=== PATIENT | female | born 1935 | race Caucasian/White ===

== ENCOUNTER → 2017-01-18 | Outpatient (CLI) | payer MEDICARE, OTHER ==
[2014-12-30 11:53] VITALS: BP 135/63
[~2017-01-18] MED LIST: ALBUTEROL0.09 MG/A4 IH; ASPIR LOW81 MG PO; BUFFERED ASPIR325 M1 PO; CEPHALEXIN500 M1 PO; COUMADIN 5MG5 MG/TAB PO; COUMADIN2.5 MG PO; COUMADIN7.5 MG PO; LEVAQUIN 250MG250 M1 PO; LOVENOX60 MG/0.6 SC; MECLIZINE25 MG PO; METOPROLOL SUCC50 M1 PO; MUCINEX 60600 MG/TA1 PO; NITROGLYCERIN0.4 MG SL; ONDANSETRON4 M1 PO; PROMETHAZINE HC25 M2 PO; SIMVASTATIN40 MG PO; TOPROL XL50 MG PO; VENTOLIN0.09 MG IH; VITAMIN D32000 IU PO; ZOCOR40 MG PO; [UNRECOGNIZED DRUG - OTHER] PO
== END ==
LOC: RAD 08:40 → LAB 10:22
DX: R10.30 Lower abdominal pain, unspecified (principal)
CPT/HCPCS: Q9967

== ENCOUNTER → 2017-01-19 | Outpatient (CLI) | payer MEDICARE, OTHER ==
[2014-12-30 11:53] VITALS: BP 135/63
== END ==
LOC: RAD 08:57
DX: R10.30 Lower abdominal pain, unspecified (principal); I77.4 Celiac artery compression syndrome; K57.30 Diverticulosis of large intestine without perforation or abscess without bleeding
CPT/HCPCS: Q9967

== ENCOUNTER → 2019-06-11 | Outpatient (CLI) | payer MEDICARE, OTHER ==
[2019-05-15 22:08] VITALS: BP 127/60
[~2019-06-11] MED LIST changes: +AMLODIPINE BES2.5 MG PO; +LEVOTHYROXINE0.05 MG PO; +METOPROLOL SUCC25 M1 PO; +SOTALOL HYDROCH80 MG PO; +XARELTO20 MG PO
== END ==
LOC: RAD 08:56
DX: K57.30 Diverticulosis of large intestine without perforation or abscess without bleeding (principal); M51.35 Other intervertebral disc degeneration, thoracolumbar region; K44.9 Diaphragmatic hernia without obstruction or gangrene; K76.89 Other specified diseases of liver
CPT/HCPCS: Q9967

== ENCOUNTER 2020-01-14 14:00 | Emergency (ER) | payer MEDICARE, OTHER ==
[~2020-01-14] VITALS: Ht 167.6 cm; Wt 72.7 kg
[2020-01-14 15:05] LABS: EOS # 0.2 (0.04-0.40); EOS % 2.2 % (1.0-5.0); HEMATOCRIT 45.7 % (37.0-47.0); HEMOGLOBIN 14.4 g/dL (12.5-16.0); LYMPH# 1.8 (1.50-4.00); MEAN CELL VOLUME 99 fl (78-100); MEAN CORPUSCULAR HEMOGLOBIN 31 pg (27-31); MEAN CORPUSCULAR HGB CONC 32 g/dL (33-37); MONO # 0.7 (0.20-0.80); NEU # 4.2 (1.40-6.50); PLATELET COUNT 153 K/mm3 (130-400); RED BLOOD COUNT 4.62 M/mm3 (4.10-5.30); RED CELL DISTRIBUTION WIDTH 14.3 % (11.5-14.5); WHITE BLOOD COUNT 6.9 K/mm3 (4.8-10.8)
[2020-01-14 15:34] LABS: ALBUMIN 3.8 g/dL (3.4-4.8); POTASSIUM 4.2 mmol/L (3.5-5.1); SODIUM 144 mmol/L (136-145)
[2020-01-14 15:35] LABS: CALCIUM 8.8 mg/dL (8.3-10.5)
[2020-01-14 15:37] LABS: GLUCOSE 86 mg/dL (65-105); TOTAL PROTEIN 6.5 g/dL (6.2-8.1)
[2020-01-14 15:38] LABS: CARBON DIOXIDE 22 mmol/L (23-31)
[2020-01-14 15:39] LABS: TOTAL BILIRUBIN 0.3 mg/dL (0.2-1.2)
[2020-01-14 15:42] LABS: AST-SGOT 20 U/L (5-34)
[2020-01-14 15:43] LABS: ALT/SGPT 21 U/L (0-55)
[2020-01-14 15:59] LABS: TROPONIN-I < 0.03 ng/mL (<0.030)
[2020-01-14 16:54] LABS: URINE APPEARANCE CLEAR; URINE COLOR YELLOW
[2020-01-14 16:55] LABS: URINE BILIRUBIN NEGATIVE (NEGATIVE); URINE BLOOD NEGATIVE (NEGATIVE); URINE GLUCOSE NEGATIVE (NEGATIVE); URINE KETONE NEGATIVE (NEGATIVE); URINE LEUKOCYTE ESTERASE NEGATIVE (NEGATIVE); URINE MUCUS PRESENT (NOT PRESENT); URINE NITRATE NEGATIVE (NEGATIVE); URINE PROTEIN(semi-quant) TRACE mg/dL (NEGATIVE); URINE UROBILINOGEN NORMAL (NORMAL)
[2020-01-14] MEDS ORDERED: ONDANSETRON ODT8 MG PO (17:06)
[2020-01-14] MEDS ORDERED: AUGMENTIN 875-1 EAC1 PO (17:06)
[2020-01-14] MEDS ORDERED: VALIUM 2MG T2 MG/TAB PO (17:06)
[2020-01-14 17:45] VITALS: BP 154/68
== END 2020-01-14 17:55 | disposition home or self-care (01) ==
LOC: ED 14:00
PROVIDERS: Nurse Practitioner Family
DX: H81.399 Other peripheral vertigo, unspecified ear (principal); J01.30 Acute sphenoidal sinusitis, unspecified; I11.0 Hypertensive heart disease with heart failure; I50.9 Heart failure, unspecified; I48.91 Unspecified atrial fibrillation; I25.10 Atherosclerotic heart disease of native coronary artery without angina pectoris; I25.2 Old myocardial infarction; E07.9 Disorder of thyroid, unspecified; Z79.01 Long term (current) use of anticoagulants; Z79.82 Long term (current) use of aspirin; Z79.890 Hormone replacement therapy; Z86.73 Personal history of transient ischemic attack (TIA), and cerebral infarction without residual deficits; Z95.5 Presence of coronary angioplasty implant and graft
CPT/HCPCS: J2405; J3360; J7030

== ENCOUNTER → 2020-12-17 | Outpatient (CLI) | payer MEDICARE ==
[~2020-12-17] MED LIST changes: +AMOXICILLIN AND1 TA2 PO; +AUGMENTIN 875-1 EAC1 PO; +LATANOPROST 2.2.5 ML OU; +ONDANSETRON ODT8 MG PO; +SIMVASTATIN40 M1 PO; +VALIUM 2MG T2 MG/TAB PO
== END ==
LOC: RAD 15:24
DX: I67.82 Cerebral ischemia (principal); G31.9 Degenerative disease of nervous system, unspecified

== ENCOUNTER 2021-02-19 17:59 | Emergency (ER) | payer MEDICARE ==
[~2021-02-19] VITALS: Ht 167.6 cm; Wt 59.1 kg
[~2021-02-19 17:59] MED LIST changes: -AMOXICILLIN AND1 TA2 PO; -LATANOPROST 2.2.5 ML OU; -SIMVASTATIN40 M1 PO
[2021-02-19] MEDS ORDERED: LATANOPROST 2.2.5 ML OU (18:20)
[2021-02-19] MEDS ORDERED: SIMVASTATIN40 M1 PO (18:22)
[2021-02-19 19:45] LABS: BASO # 0.04 (0.02-0.10); EOS # 0.07 (0.04-0.40); HEMATOCRIT 47.1 % (37.0-47.0); HEMOGLOBIN 15.3 g/dL (12.5-16.0); LYMPH# 1.66 (1.50-4.00); MEAN CELL VOLUME 98 fl (78-100); MEAN CORPUSCULAR HEMOGLOBIN 32 pg (27-31); MEAN CORPUSCULAR HGB CONC 33 g/dL (33-37); MEAN PLATELET VOLUME 11.5 fl (7.4-10.4); MONO # 0.55 (0.20-0.80); NEU # 4.79 (1.40-6.50); PLATELET COUNT 183 K/mm3 (130-400); RED BLOOD COUNT 4.79 M/mm3 (4.10-5.30); RED CELL DISTRIBUTION WIDTH 13.7 % (11.5-14.5); WHITE BLOOD COUNT 7.1 K/mm3 (4.8-10.8)
[2021-02-19 19:56] LABS: ALBUMIN 3.9 g/dL (3.4-4.8)
[2021-02-19 19:57] LABS: SODIUM 143 mmol/L (136-145)
[2021-02-19 19:58] LABS: CALCIUM 9.8 mg/dL (8.3-10.5)
[2021-02-19 19:59] LABS: GLUCOSE 110 mg/dL (65-105); TOTAL PROTEIN 6.6 g/dL (6.2-8.1)
[2021-02-19 20:00] LABS: CARBON DIOXIDE 25 mmol/L (23-31)
[2021-02-19 20:01] LABS: TOTAL BILIRUBIN 0.4 mg/dL (0.2-1.2)
[2021-02-19 20:04] LABS: AST-SGOT 18 U/L (5-34)
[2021-02-19 20:05] LABS: ALT/SGPT 16 U/L (0-55)
[2021-02-19 20:06] LABS: LIPASE 33 U/L (8-78)
[2021-02-19 20:12] LABS: TROPONIN-I < 0.03 ng/mL (<0.030)
[2021-02-19 20:29] LABS: URINE APPEARANCE CLEAR; URINE COLOR YELLOW; URINE PROTEIN(semi-quant) TRACE mg/dL (NEGATIVE)
[2021-02-19 20:30] LABS: URINE BILIRUBIN NEGATIVE (NEGATIVE); URINE BLOOD NEGATIVE (NEGATIVE); URINE GLUCOSE NEGATIVE (NEGATIVE); URINE KETONE 1+ (NEGATIVE); URINE LEUKOCYTE ESTERASE 1+ (NEGATIVE); URINE MUCUS PRESENT (NOT PRESENT); URINE NITRATE NEGATIVE (NEGATIVE); URINE UROBILINOGEN NORMAL (NORMAL)
[2021-02-19] MEDS ORDERED: AMOXICILLIN AND1 TA2 PO (21:00)
[2021-02-19 21:12] VITALS: BP 153/68
== END 2021-02-19 21:12 | disposition home or self-care (01) ==
LOC: ED 17:59
PROVIDERS: Family Medicine
DX: N39.0 Urinary tract infection, site not specified (principal); I50.9 Heart failure, unspecified; I11.0 Hypertensive heart disease with heart failure; I25.10 Atherosclerotic heart disease of native coronary artery without angina pectoris; I48.91 Unspecified atrial fibrillation; E03.9 Hypothyroidism, unspecified; E78.5 Hyperlipidemia, unspecified; Z20.822 Contact with and (suspected) exposure to COVID-19; Z79.82 Long term (current) use of aspirin; Z79.01 Long term (current) use of anticoagulants; Z79.890 Hormone replacement therapy; Z79.899 Other long term (current) drug therapy

== ENCOUNTER 2021-12-20 17:00 | Emergency (ER) | payer MEDICARE ==
[~2021-12-20] VITALS: Ht 175.3 cm; Wt 59.1 kg
[~2021-12-20 17:00] MED LIST changes: +AMOXICILLIN AND1 TA2 PO; +LATANOPROST 2.2.5 ML OU; +SIMVASTATIN40 M1 PO
[2021-12-20 19:13] LABS: PROTHROMBIN TIME 13.7 SECONDS (9.0-12.0)
[2021-12-20 19:41] LABS: ALBUMIN 4.7 g/dL (3.4-4.8); POTASSIUM 4.6 mmol/L (3.5-5.1); SODIUM 138 mmol/L (136-145)
[2021-12-20 19:42] LABS: CALCIUM 9.9 mg/dL (8.3-10.5)
[2021-12-20 19:43] LABS: GLUCOSE 96 mg/dL (65-105); TOTAL PROTEIN 8.3 g/dL (6.2-8.1)
[2021-12-20 19:44] LABS: CARBON DIOXIDE 19 mmol/L (23-31)
[2021-12-20 19:45] LABS: TOTAL BILIRUBIN 0.8 mg/dL (0.2-1.2)
[2021-12-20 19:49] LABS: AST-SGOT 30 U/L (5-34)
[2021-12-20 19:50] LABS: ALT/SGPT 20 U/L (0-55)
[2021-12-20 19:58] LABS: TROPONIN-I < 0.030 ng/mL (<0.030)
[2021-12-20 20:54] LABS: BASO # 0.03 K/mm3 (0.02-0.10); EOS # 0.07 K/mm3 (0.04-0.40); EOS % 1.2 % (1.0-5.0); HEMATOCRIT 55.1 % (37.0-47.0); HEMOGLOBIN 17.9 g/dL (12.5-16.0); LYMPH# 1.37 K/mm3 (1.50-4.00); MEAN CELL VOLUME 96 fl (78-100); MEAN CORPUSCULAR HEMOGLOBIN 31 pg (27-31); MEAN CORPUSCULAR HGB CONC 33 g/dL (33-37); MONO # 0.93 K/mm3 (0.20-0.80); NEU # 3.57 K/mm3 (1.40-6.50); PLATELET COUNT 132 K/mm3 (130-400); RED BLOOD COUNT 5.74 M/mm3 (4.10-5.30); RED CELL DISTRIBUTION WIDTH 13.9 % (11.5-14.5)
[2021-12-20 21:32] VITALS: BP 131/105
== END 2021-12-20 21:32 | disposition home or self-care (01) ==
LOC: ED 17:00
PROVIDERS: Family Medicine; Physician Assistant
DX: U07.1 COVID-19 (principal); E86.0 Dehydration; Z79.01 Long term (current) use of anticoagulants
CPT/HCPCS: J2405; J7040